=== PATIENT | male | born 1985 | race African-American/Black ===

== ENCOUNTER 2018-12-19 05:56 | Inpatient (IN) | payer OTHER ==
[2018-12-16 18:37] VITALS: BMI 30.1
[~2018-12-19 05:56] MED LIST: oxyCODONE HCL 10 MG SUSTAINED ACTING TABLET PO ONE
[2018-12-19] MEDS ORDERED: GUM MASTIC/STORAX/MSAL/ALCOHOL 1 DRP DROPSBTL MC ONE (07:03)
[2018-12-19] MEDS ORDERED: BUPIVACAINE HCL/PF 0.5% (5MG/ML) 10 ML VIAL ONE (07:05)
[2018-12-19] MEDS ORDERED: MIDAZOLAM HCL 2 MG/2 ML SINGLE DOSE VIAL ONE ×3 (07:05→10:14)
[2018-12-19] MEDS ORDERED: PROPOFOL 20 ML ONE (07:08)
[2018-12-19] MEDS ORDERED: oxyCODONE HCL 10 MG SUSTAINED ACTING TABLET ONE (07:08)
[2018-12-19] MEDS ORDERED: KETOROLAC TROMETHAMINE 30 MG/1 ML VIAL ONE (07:09)
[2018-12-19] MEDS ORDERED: LIDOCAINE HCL/PF 2% SDV 5ML VIAL ONE (07:09)
[2018-12-19] MEDS ORDERED: ceFAZolin SODIUM 1 GM VIAL ONE (07:09)
[2018-12-19] MEDS ORDERED: SODIUM CHLORIDE 0.9% P/F 10 ML VIAL IJ ONE ×2 (07:09→07:19)
[2018-12-19] MEDS ORDERED: DEXAMETHASONE SOD PHOSPHATE 4 MG/1 ML VIAL ONE (07:09)
[2018-12-19] MEDS ORDERED: BUPIVACAINE LIPOSOME/PF (EXPAREL) 266 MG/20 ML VIAL ONE (07:19)
[2018-12-19] MEDS ORDERED: SEVOFLURANE 250 ML BTL ONE (07:24)
[2018-12-19] MEDS ORDERED: ONDANSETRON 4 MG/2 ML VIAL IVPUSH PRN ×2 (07:30→11:41)
[2018-12-19] MEDS ORDERED: LACTATED RINGERS SOLUTION 1,000 ML IV SCH ×2 (07:30→11:45)
[2018-12-19] MEDS ORDERED: oxyCODONE HCL 5 MG TABLET PO PRN (07:30)
--- NOTE | 2018-12-19 07:43 | HP ---
History & Physical Update - History History: No Change - Physical Physical: No Change - Assessment Assessment: No Change - Plan Plan: No Change
[2018-12-19] MEDS ORDERED: THROMBIN (RECOMBINANT) 5,000 UNIT VIAL TP ONE (09:08)
[2018-12-19] MEDS ORDERED: ACETAMINOPHEN 1000 MG/100 ML VIAL (NON FORMULARY) IVPB ONE (10:00)
[2018-12-19] MEDS ORDERED: ACETAMINOPHEN INJECTION 100 ML IVPB ONE (11:31)
--- NOTE | 2018-12-19 11:49 | OP ---
Operative Note - Note: Operative Date: 12/19/18 Pre-Operative Diagnosis: lumbar L4-5 spondylolithesis Operation: posterior lumbar decompression, instrumentation, fusion. Transforaminal interbody L4-5 fusion with allograt and neuromonitoring Surgeon: Gera Meeks Pump Machine Operator: Jeannie Rubio Anesthesiologist/LAST PICKER: Melvin Thomas Anesthesia: Spinal Estimated Blood Loss (mls): 30 Fluid Volume Replaced (mls): 800 Operative Report Dictated: Yes
--- NOTE | 2018-12-19 11:50 | SURG ---
Surgery Bradder Note Bradder: Jeannie Rubio PA-C Date of Service: 12/19/18 Diagnosis: : lumbar L4-5 spondylolithesis Procedure: posterior lumbar decompression, instrumentation, fusion. Transforaminal interbody L4-5 fusion with allograt and neuromonitoring I was present for the entirety of the operative procedure. For further detail, please refer to operative report. Visit type - Case Type Case Type: Scheduled - Emergency Emergency Visit: No - New patient This patient is new to me today: Yes Date on this admission: 12/19/18
[2018-12-19] MEDS ORDERED: ONDANSETRON 4 MG/2 ML VIAL ONE (12:02)
--- NOTE | 2018-12-19 12:44 | OP ---
DATE OF OPERATION: 12/19/2018 PREOPERATIVE DIAGNOSES: 1. Spinal stenosis, L4-5. 2. Spondylolisthesis, L4-5. POSTOPERATIVE DIAGNOSES 1. Spinal stenosis, L4-5. 2. Spondylolisthesis, L4-5. PROCEDURE PERFORMED: 1. Transforaminal lumbar interbody fusion, L4-5. 2. Placement of instrumentation at L4-5. 3. Placement of prosthetic cage. SURGEON: Gera Meeks MD PRESETTER OPERATOR: RENATE Quinn ESTIMATED BLOOD LOSS: 100 mL. IV FLUIDS: Per Anesthesia. ANESTHESIA: Spinal/TLIP. COMPLICATIONS: There were none. DISPOSITION: Patient brought to the PACU in stable condition. INDICATIONS FOR SURGERY: The patient is a 33-year-old gentleman who has been suffering from pain from his back down his legs. X-rays and MRI were completed, which noted that he had spondylolisthesis at L4-5 secondary to a spondylolisthesis. He had gone through an exhaustive course of treatment for this, which included medications, physical therapy, and injections. Unfortunately, his pain continued to persist despite all this. At this point, risks, benefits, and alternatives were discussed and the patient consented to surgery. OPERATIVE NOTE: The patient was brought to the operating room by anesthesia staff. After appropriate patient identification was performed, spinal anesthesia was given, a TLIP block was also given. Patient was able to position himself prone on the OR table, with all areas of bony prominences well padded at this time. Two needles were placed in his back to isaiah off the L4-5 level. An x-ray was taken. The pedicles at L4-5 were marked off. The back was prepped and draped in a sterile manner. At this point timeout was completed. An incision was made bilaterally over the L4 and L5 pedicles. Dissection was carried down to fascia. The fascia was split open at this time. Under C-arm guidance, trocars were advanced into both the L4 and L5 pedicles. Through the trocars, a wire was inserted, and tap was performed and screws inserted. On the left-hand side, retractor blades were set up to expose the L4-5 facet joint. The facet joint was removed. The disk was entered using a series of pituitaries, Kerrisons and curettes. A diskectomy was completed. The endplates were decorticated at this time. Bone graft was laid down. A cage filled with bone graft was placed in. Tulip heads were placed over the screws. A tez was measured and placed and caps and compression was applied. On right-hand side, a tez was measured and placed in. Caps and compression were applied. All extra instrumentation was removed at this time. The fascia was closed with a number 1 Vicryl suture. The subcutaneous tissue was closed with 2-0 Vicryl suture. Skin was closed with 3-0 Monocryl suture. Dermabond was applied, Steri-Strips were applied, a sterile dressing applied. Patient was placed supine on the OR bed, brought to the PACU in stable condition. Ananda [id number]
[2018-12-19] MEDS ORDERED: diazePAM 5 MG TABLET ONE (12:59)
[2018-12-19] MEDS ORDERED: diazePAM 5 MG TABLET PO SCH (13:00)
[2018-12-19] MEDS ORDERED: oxyCODONE HCL 5 MG TABLET ONE ×2 (14:07→18:17)
[2018-12-19] MEDS: oxyCODONE HCL 5 MG TABLET PO PRN ×2 (14:10→18:20)
[2018-12-19] MEDS ORDERED: CEFAZOLIN 1 GM/D5W 1 GM/50 ML BAG ONE (15:30)
[2018-12-19] MEDS ORDERED: ceFAZolin SODIUM 1 GM VIAL IVPB ONE (15:43)
[2018-12-19] MEDS ORDERED: CEFAZOLIN 1 GM/D5W 1 GM/50 ML BAG IVPB SCH (16:00)
[2018-12-19] MEDS ORDERED: KETOROLAC TROMETHAMINE 30 MG/1 ML VIAL IVPUSH PRN (18:00)
[2018-12-19] MEDS ORDERED: ACETAMINOPHEN 325 MG TABLET (FP) PO SCH (18:00)
[2018-12-19] MEDS ORDERED: ACETAMINOPHEN 500 MG TABLET (FP) ONE (18:17)
[2018-12-19 19:08] VITALS: BP 124/71; PULSE 66; TEMP 98.3
== END 2018-12-19 19:10 | disposition home or self-care (01) | DRG 304 ==
LOC: FM/S 05:56
PROVIDERS: ADMIT Orthopaedic Surgery Orthopaedic Surgery of the Spine; ATTEND Orthopaedic Surgery Orthopaedic Surgery of the Spine
PROC: 0SB20ZZ Excision of Lumbar Vertebral Disc, Open Approach (ICD-10-PCS; 2018-12-19)
PROC: 4A11X4G Monitoring of Peripheral Nervous Electrical Activity, Intraoperative, External Approach (ICD-10-PCS; 2018-12-19)
PROC: 0SG00AJ Fusion of Lumbar Vertebral Joint with Interbody Fusion Device, Posterior Approach, Anterior Column, Open Approach (ICD-10-PCS; principal; 2018-12-19 09:22)
DX: M43.16 Spondylolisthesis, lumbar region (principal); M48.061 Spinal stenosis, lumbar region without neurogenic claudication
CPT/HCPCS: 72100-TC-FY; 94760; J0131